=== PATIENT | female | born 1945 | race African-American/Black ===

== ENCOUNTER 2020-02-25 07:36 | Inpatient (IN) ==
[2020-02-25] MEDS ORDERED: hydrALAZINE 20 MG/1 ML VIAL ONE (07:55)
[2020-02-25] MEDS ORDERED: hydrALAZINE 20 MG/1 ML VIAL IV STA (08:03)
[2020-02-25 08:11] LABS: Basophils % 0.2 % (0.0-0.8); Hematocrit 40.2 VOL% (35.7-47.0); Hemoglobin 12.3 GM/DL (12.0-16.0); Immature Granulocytes % 0.2 %; Immature Granulocytes Absolute 0.02 #; Lymphocytes # 0.8 10*3/uL (1.4-4.0); Lymphocytes % 8.5 % (21.3-54.2); Mean Corpuscular HGB Conc 30.6 GM/DL (32-36); Mean Corpuscular Volume 72.3 FL (87-102); Monocytes % 9.3 % (1.7-12.7); Neutrophils % 81.8 % (38.7-73.9); Platelet Count 273 T/CUMM (130-400); Red Blood Count 5.56 MC/CUMM (3.8-5.5); Red Cell Distribution Width 18.6 % (9.3-17.3); White Blood Count 9.4 T/CUMM (4-12)
[2020-02-25 08:24] LABS: PT Patient Result 10.9 SECS (9.8-11.9); Partial Thromboplastin Time 22.5 SECS (23.9-33.8)
[2020-02-25 08:34] LABS: Platelet Estimate Adequate
[2020-02-25 08:55] LABS: Apearance,Urine CLEAR (Clear); Bilirubin,Urine Negative (Negative); Blood, Urine Negative (Negative); Glucose,Urine (UA) Negative (Negative); Ketones,Urine 20 mg/dL (Negative); Mucus,Urine Occasional /LPF (Occasional); Nitrite,Urine Negative (Negative); Protein,Urine 100 MG/DL; RBC,Urine 3 /HPF (0-4); Urine Color Yellow (Yellow); WBC,Urine 1 /HPF (0-6)
[2020-02-25 09:12] LABS: Barbiturates Screen,Urine Negative (Negative); Benzodiazepines Screen,Urine Negative (Negative); Cannabinoid Screen,Urine Negative (Negative); Opiate Screen,Urine Negative (Negative); Phencyclidine Screen,Urine Negative (Negative)
[2020-02-25 09:16] LABS: Alanine Aminotransferase 71 U/L (13-56); Albumin 3.4 G/DL (3.4-5.0); Alkaline Phosphatase 255 U/L (45-117); Aspartate Amino Transferase 107 U/L (0-37); Blood Urea Nitrogen 21 MG/DL (7-18); Calcium 10.4 MG/DL (8.5-10.1); Estimated Glom Filtration Rate 38 ML/MIN; Glucose 231 MG/DL (74-106); Osmolality,Calculated 275.4 MOS/KG (273-304); Total Protein 8.4 G/DL (6.4-8.3)
[2020-02-25] MEDS ORDERED: cefTRIAXone 1,000 MG in SODIUM CHLORIDE 0.9% 100 ML IV STA (09:56)
[2020-02-25] MEDS ORDERED: SODIUM CHLORIDE 0.9% 1,000 ML IV STA (10:18)
[2020-02-25] MEDS ORDERED: MAGNESIUM SULF RIDER 2 GM in PREMIX 1 EACH IV STA (10:20)
[2020-02-25] MEDS ORDERED: SODIUM CHLORIDE 0.9% 500 ML IV STA (10:23)
[2020-02-25] MEDS ORDERED: DEXTROSE 50% 25 GM/50 ML VIAL IV PRN (10:24)
[2020-02-25] MEDS ORDERED: LACTULOSE 20 GM/30 ML UDCUP PO PRN (10:24)
[2020-02-25] MEDS ORDERED: GLUCAGON 1 MG VIAL IM PRN (10:24)
[2020-02-25] MEDS ORDERED: ENOXAPARIN 40 MG/0.4 ML SYRINGE SUBCUT SCH (10:30)
[2020-02-25 10:44] LABS: Ferritin 217.1 ng/ml (8-252)
[2020-02-25] MEDS ORDERED: LORazepam 2 MG/1 ML VIAL IV ONE (12:04)
[2020-02-25] MEDS ORDERED: LACTATED RINGERS 1,000 ML IV SCH (12:30)
[2020-02-25] MEDS: ONDANSETRON 4 MG/2 ML VIAL IV PRN (14:01)
[2020-02-25] MEDS: HEPARIN 5,000 UNIT/1 ML VIAL SUBCUT SCH (14:08)
[2020-02-25 14:26] LABS: Hepatitis B Core IgM Quant 0.16 Index; Hepatitis B Surface Ag Quant < 0.10 Index; Hepatitis B Surface Ag Result Negative (Negative); Hepatitis C Virus Ab Quant 0.06 Index; Hepatitis C Virus Ab Result Negative (Negative)
[2020-02-25] MEDS ORDERED: LACTULOSE 320 GM/480 ML BOTTLE RECTAL ONE (15:28)
[2020-02-25] MEDS: SODIUM BICARB INJ 100 MEQ in DEXTROSE 5% NACL 0.45% 1,000 ML IV SCH (17:03)
[2020-02-25] MEDS: INSULIN REGULAR 100 UNIT/ML SUBCUT SCH ×2 (17:10→22:06)
[2020-02-26] MEDS: HEPARIN 5,000 UNIT/1 ML VIAL SUBCUT SCH ×2 (02:22→14:18)
[2020-02-26] MEDS: SODIUM BICARB INJ 100 MEQ in DEXTROSE 5% NACL 0.45% 1,000 ML IV SCH (04:28)
[2020-02-26 05:23] LABS: Basophils % 0.1 % (0.0-0.8); Hematocrit 31.4 VOL% (35.7-47.0); Immature Granulocytes % 0.5 %; Immature Granulocytes Absolute 0.09 #; Lymphocytes % 5.7 % (21.3-54.2); Mean Corpuscular HGB Conc 31.8 GM/DL (32-36); Mean Corpuscular Volume 69.9 FL (87-102); Monocytes % 10.1 % (1.7-12.7); Neutrophils % 83.6 % (38.7-73.9); Platelet Count 228 T/CUMM (130-400); Red Blood Count 4.49 MC/CUMM (3.8-5.5); Red Cell Distribution Width 16.1 % (9.3-17.3)
[2020-02-26 05:34] LABS: White Blood Count 18.4 T/CUMM (4-12)
[2020-02-26 05:57] LABS: Albumin 2.9 G/DL (3.4-5.0); Bilirubin,Total 0.5 MG/DL (0.2-1.0); Calcium 9.3 MG/DL (8.5-10.1); Osmolality,Calculated 296.7 MOS/KG (273-304); Total Protein 6.8 G/DL (6.4-8.3)
[2020-02-26 05:58] LABS: Hypochromasia 1+; Microcytosis 1+; Target Cells Few
[2020-02-26 05:59] LABS: Ovalocytes Slight; Platelet Estimate Normal
[2020-02-26] MEDS ORDERED: POTASSIUM CHLORIDE 20 MEQ TABLET PO ONE (07:24)
[2020-02-26] MEDS ORDERED: hydrALAZINE 20 MG/1 ML VIAL IV PRN (07:25)
[2020-02-26] MEDS ORDERED: PANTOPRAZOLE 40 MG TABLET PO SCH (09:00)
[2020-02-26] MEDS: INSULIN REGULAR 100 UNIT/ML SUBCUT SCH ×4 (09:21→22:38)
[2020-02-26] MEDS: ONDANSETRON 4 MG/2 ML VIAL IV PRN (09:21)
[2020-02-26] MEDS: METOPROLOL TARTRATE 25 MG TABLET PO SCH ×2 (09:22→22:38)
[2020-02-26] MEDS: ISOSORBIDE MONONITRATE 30 MG TABLET PO SCH (09:22)
[2020-02-26] MEDS: ESCITALOPRAM 10 MG TABLET PO SCH (09:22)
[2020-02-26] MEDS: amLODIPine 5 MG TABLET PO SCH (09:22)
[2020-02-26] MEDS: SODIUM CHLORIDE 0.45% 1,000 ML IV SCH ×2 (09:23→18:36)
[2020-02-26] MEDS ORDERED: cefTRIAXone 1,000 MG in SYRINGE 1 EACH IV SCH (11:00)
[2020-02-26] MEDS: PIPERACILLIN/TAZOBACTAM 3,375 MG in SODIUM CHLORIDE 0.9% 100 ML IV SCH ×2 (14:18→22:46)
[2020-02-26] MEDS: INSULIN LISPRO 100 UNIT/ML SUBCUT SCH (22:38)
[2020-02-27] MEDS: HEPARIN 5,000 UNIT/1 ML VIAL SUBCUT SCH ×2 (01:41→12:40)
[2020-02-27] MEDS: SODIUM CHLORIDE 0.45% 1,000 ML IV SCH ×2 (03:05→15:28)
[2020-02-27] MEDS: PIPERACILLIN/TAZOBACTAM 3,375 MG in SODIUM CHLORIDE 0.9% 100 ML IV SCH ×3 (03:32→21:16)
[2020-02-27 05:57] LABS: Basophils % 0.1 % (0.0-0.8); Eosinophils # 0.1 10*3/uL (0.0-0.87); Eosinophils % 0.6 % (0.00-10.9); Hematocrit 32.3 VOL% (35.7-47.0); Hemoglobin 9.9 GM/DL (12.0-16.0); Immature Granulocytes % 0.1 %; Immature Granulocytes Absolute 0.01 #; Lymphocytes # 1.8 10*3/uL (1.4-4.0); Lymphocytes % 19.8 % (21.3-54.2); Mean Corpuscular HGB Conc 30.7 GM/DL (32-36); Mean Corpuscular Volume 71.9 FL (87-102); Neutrophils % 65.4 % (38.7-73.9); Platelet Count 194 T/CUMM (130-400); Red Blood Count 4.49 MC/CUMM (3.8-5.5); Red Cell Distribution Width 16.8 % (9.3-17.3); White Blood Count 9.3 T/CUMM (4-12)
[2020-02-27 06:01] LABS: Calcium 9.4 MG/DL (8.5-10.1); Osmolality,Calculated 287.4 MOS/KG (273-304)
[2020-02-27 06:33] LABS: Hypochromasia 2+; Microcytosis 1+
[2020-02-27 06:34] LABS: Ovalocytes Slight; Platelet Estimate Adequate; Target Cells Few
[2020-02-27] MEDS: INSULIN REGULAR 100 UNIT/ML SUBCUT SCH ×4 (09:36→21:25)
[2020-02-27] MEDS: METOPROLOL TARTRATE 25 MG TABLET PO SCH ×3 (09:41→21:24)
[2020-02-27] MEDS: ESCITALOPRAM 10 MG TABLET PO SCH (09:41)
[2020-02-27] MEDS: amLODIPine 5 MG TABLET PO SCH (09:41)
[2020-02-27] MEDS: ISOSORBIDE MONONITRATE 30 MG TABLET PO SCH (09:41)
[2020-02-27] MEDS: levETIRAcetam 500 MG TABLET PO SCH ×2 (21:18→21:24)
[2020-02-27] MEDS: INSULIN LISPRO 100 UNIT/ML SUBCUT SCH (21:18)
[2020-02-28] MEDS: HEPARIN 5,000 UNIT/1 ML VIAL SUBCUT SCH ×2 (02:45→13:52)
[2020-02-28] MEDS: PIPERACILLIN/TAZOBACTAM 3,375 MG in SODIUM CHLORIDE 0.9% 100 ML IV SCH ×2 (04:49→12:08)
[2020-02-28 05:55] LABS: Basophils % 0.3 % (0.0-0.8); Eosinophils % 0.4 % (0.00-10.9); Hematocrit 29.4 VOL% (35.7-47.0); Hemoglobin 9.2 GM/DL (12.0-16.0); Immature Granulocytes % 0.8 %; Immature Granulocytes Absolute 0.06 #; Lymphocytes # 1.3 10*3/uL (1.4-4.0); Lymphocytes % 17.1 % (21.3-54.2); Mean Corpuscular HGB Conc 31.3 GM/DL (32-36); Mean Corpuscular Volume 71.2 FL (87-102); Monocytes % 13.4 % (1.7-12.7); Platelet Count 190 T/CUMM (130-400); Red Blood Count 4.13 MC/CUMM (3.8-5.5); Red Cell Distribution Width 16.4 % (9.3-17.3); White Blood Count 7.4 T/CUMM (4-12)
[2020-02-28 06:17] LABS: Calcium 9.3 MG/DL (8.5-10.1); Osmolality,Calculated 280.5 MOS/KG (273-304)
[2020-02-28 06:32] LABS: Hypochromasia 2+; Microcytosis 1+
[2020-02-28 06:33] LABS: Target Cells Slight
[2020-02-28 06:34] LABS: Platelet Estimate Adequate
[2020-02-28] MEDS: amLODIPine 5 MG TABLET PO SCH (08:29)
[2020-02-28] MEDS: METOPROLOL TARTRATE 25 MG TABLET PO SCH (08:29)
[2020-02-28] MEDS: INSULIN REGULAR 100 UNIT/ML SUBCUT SCH ×2 (08:38→12:01)
[2020-02-28] MEDS: levETIRAcetam 500 MG TABLET PO SCH (09:24)
[2020-02-28] MEDS: ISOSORBIDE MONONITRATE 30 MG TABLET PO SCH (09:25)
[2020-02-28] MEDS: ESCITALOPRAM 10 MG TABLET PO SCH (09:25)
[2020-02-28] MEDS ORDERED: levETIRAcetam 500 MG TABLET PO SCH (09:44)
[2020-02-28] MEDS: SODIUM CHLORIDE 0.45% 1,000 ML IV SCH (13:51)
[2020-02-28 15:42] VITALS: BP 112/60
== END 2020-02-28 17:23 | disposition home health service (06) | DRG 100 ==
LOC: N.EDINP 07:36 → N.ED 07:36 → N.TELEN 13:34 → SUATTDRO 15:33
PROVIDERS: ADMIT Internal Medicine; ATTEND Internal Medicine

== ENCOUNTER 2020-03-01 15:13 | Inpatient (IN) ==
[2020-03-01] MEDS ORDERED: SODIUM CHLORIDE 0.9% 1,000 ML IV STA (15:33)
[2020-03-01 15:54] LABS: Basophils % 0.2 % (0.0-0.8); Eosinophils % 0.1 % (0.00-10.9); Hematocrit 36.1 VOL% (35.7-47.0); Hemoglobin 11.3 GM/DL (12.0-16.0); Immature Granulocytes % 0.6 %; Immature Granulocytes Absolute 0.05 #; Lymphocytes # 0.6 10*3/uL (1.4-4.0); Lymphocytes % 7.6 % (21.3-54.2); Mean Corpuscular HGB Conc 31.3 GM/DL (32-36); Mean Corpuscular Volume 71.6 FL (87-102); Monocytes % 12.5 % (1.7-12.7); Platelet Count 200 T/CUMM (130-400); Red Blood Count 5.04 MC/CUMM (3.8-5.5); Red Cell Distribution Width 16.5 % (9.3-17.3); White Blood Count 8.2 T/CUMM (4-12)
[2020-03-01 16:05] LABS: PT Patient Result 10.6 SECS (9.8-11.9); Partial Thromboplastin Time 23.9 SECS (23.9-33.8)
[2020-03-01 16:16] LABS: Albumin 3.3 G/DL (3.4-5.0); Bilirubin,Total 0.9 MG/DL (0.2-1.0); Calcium 9.9 MG/DL (8.5-10.1); Osmolality,Calculated 272.7 MOS/KG (273-304); Total Protein 7.4 G/DL (6.4-8.3)
[2020-03-01 16:24] LABS: Ferritin 180.1 ng/ml (8-252)
[2020-03-01 16:31] LABS: Apearance,Urine CLEAR (Clear); Bilirubin,Urine Negative (Negative); Blood, Urine Small mg/dL (Negative); Glucose,Urine (UA) 150 mg/dL (Negative); Ketones,Urine 20 mg/dL (Negative); Mucus,Urine Occasional /LPF (Occasional); Nitrite,Urine Negative (Negative); Protein,Urine 100 MG/DL; RBC,Urine 5 /HPF (0-4); Squamous Epithelial Cell,Urine Occasional /HPF (0-10); Urine Color Yellow (Yellow); Urine Specific Gravity 1.015 (1.001-1.035); Urine Urobilinogen < 2.0 EU/DL (0.2-1.0); WBC,Urine 1 /HPF (0-6)
[2020-03-01 16:37] LABS: Barbiturates Screen,Urine Negative (Negative); Benzodiazepines Screen,Urine Negative (Negative); Cannabinoid Screen,Urine Negative (Negative); Opiate Screen,Urine Negative (Negative); Phencyclidine Screen,Urine Negative (Negative)
[2020-03-01] MEDS ORDERED: ONDANSETRON 4 MG/2 ML VIAL IV PRN (17:56)
[2020-03-01] MEDS ORDERED: GLUCAGON 1 MG VIAL IM PRN (17:56)
[2020-03-01] MEDS ORDERED: LACTULOSE 20 GM/30 ML UDCUP PO PRN (17:56)
[2020-03-01] MEDS ORDERED: DEXTROSE 50% 25 GM/50 ML VIAL IV PRN (17:56)
[2020-03-01] MEDS ORDERED: DOCUSATE SODIUM 100 MG CAPSULE PO PRN (17:56)
[2020-03-01] MEDS: ENOXAPARIN 30 MG/0.3 ML SYRINGE SUBCUT SCH (21:51)
[2020-03-01] MEDS: INSULIN LISPRO 100 UNIT/ML SUBCUT SCH (21:51)
[2020-03-01] MEDS: SODIUM CHLORIDE 0.9% 1,000 ML IV SCH (23:19)
[2020-03-01] MEDS: ACYCLOVIR 800 MG TABLET PO SCH (23:19)
[2020-03-02] MEDS: hydrALAZINE 20 MG/1 ML VIAL IV PRN (02:45)
[2020-03-02] MEDS: SODIUM CHLORIDE 0.9% 1,000 ML IV SCH ×2 (03:05→10:48)
[2020-03-02 05:33] LABS: Basophils % 0.2 % (0.0-0.8); Eosinophils % 0.3 % (0.00-10.9); Hematocrit 31.4 VOL% (35.7-47.0); Immature Granulocytes % 0.7 %; Immature Granulocytes Absolute 0.07 #; Lymphocytes % 10.3 % (21.3-54.2); Mean Corpuscular HGB Conc 31.8 GM/DL (32-36); Mean Corpuscular Volume 69.5 FL (87-102); Monocytes % 18.3 % (1.7-12.7); Neutrophils % 70.2 % (38.7-73.9); Platelet Count 248 T/CUMM (130-400); Red Blood Count 4.52 MC/CUMM (3.8-5.5); Red Cell Distribution Width 16.5 % (9.3-17.3); White Blood Count 9.6 T/CUMM (4-12)
[2020-03-02 06:02] LABS: Albumin 2.9 G/DL (3.4-5.0); Bilirubin,Total 0.6 MG/DL (0.2-1.0); Calcium 9.3 MG/DL (8.5-10.1); Osmolality,Calculated 270.4 MOS/KG (273-304); Risk Ratio 2.8; Thyroid Stimulating Hormone 1.02 uIU/ml (0.358-3.74); Total Protein 7.1 G/DL (6.4-8.3); VLDL CHOLESTEROL 22.4 MG/DL
[2020-03-02 06:03] LABS: Hypochromasia 1+; Lymphocytes 12 % (20-55); Platelet Estimate Adequate; Segmented Neutrophils 77 % (50-85); Total Cells Counted 100
[2020-03-02 06:04] LABS: Microcytosis Slight
[2020-03-02] MEDS: ACYCLOVIR 800 MG TABLET PO SCH ×5 (06:07→21:27)
[2020-03-02] MEDS ORDERED: MAGNESIUM SULF RIDER 2 GM in PREMIX 1 EACH IV PRN (07:07)
[2020-03-02] MEDS ORDERED: MAGNESIUM SULF RIDER 4 GM in PREMIX 1 EACH IV PRN (07:07)
[2020-03-02] MEDS ORDERED: LORazepam 2 MG/1 ML VIAL IV PRN (07:59)
[2020-03-02] MEDS ORDERED: AMOXICILLIN/CLAV 875 MG TABLET PO SCH (08:00)
[2020-03-02] MEDS: ESCITALOPRAM 10 MG TABLET PO SCH (09:40)
[2020-03-02] MEDS: PANTOPRAZOLE 40 MG TABLET PO SCH (09:40)
[2020-03-02] MEDS: ISOSORBIDE MONONITRATE 30 MG TABLET PO SCH (09:40)
[2020-03-02] MEDS: ASPIRIN EC 325 MG TABLET PO SCH (09:40)
[2020-03-02] MEDS: INSULIN LISPRO 100 UNIT/ML SUBCUT SCH ×4 (10:16→21:28)
[2020-03-02] MEDS: POTASSIUM CHLORIDE 20 MEQ TABLET PO PRN ×2 (12:39→17:46)
[2020-03-02] MEDS ORDERED: INSULIN GLARGINE 100 UNIT/ML SUBCUT SCH (21:00)
[2020-03-02] MEDS: levETIRAcetam 500 MG TABLET PO SCH (21:27)
[2020-03-02] MEDS: AMITRIPTYLINE 50 MG TABLET PO SCH (21:27)
[2020-03-02] MEDS: ATORVASTATIN 10 MG TABLET PO SCH (21:27)
[2020-03-02] MEDS: ENOXAPARIN 30 MG/0.3 ML SYRINGE SUBCUT SCH (21:29)
[2020-03-03] MEDS: SODIUM CHLORIDE 0.9% 1,000 ML IV SCH ×2 (03:14→18:24)
[2020-03-03 05:37] LABS: Basophils % 0.1 % (0.0-0.8); Eosinophils # 0.1 10*3/uL (0.0-0.87); Eosinophils % 0.6 % (0.00-10.9); Hematocrit 27.1 VOL% (35.7-47.0); Hemoglobin 8.6 GM/DL (12.0-16.0); Immature Granulocytes % 0.7 %; Immature Granulocytes Absolute 0.06 #; Lymphocytes % 11.8 % (21.3-54.2); Mean Corpuscular HGB Conc 31.7 GM/DL (32-36); Mean Corpuscular Volume 69.3 FL (87-102); Monocytes % 19.5 % (1.7-12.7); Neutrophils % 67.3 % (38.7-73.9); Platelet Count 177 T/CUMM (130-400); Red Blood Count 3.91 MC/CUMM (3.8-5.5); White Blood Count 8.2 T/CUMM (4-12)
[2020-03-03 06:00] LABS: Eosinophils 3 % (0-10); Hypochromasia 1+; Lymphocytes 8 % (20-55); Ovalocytes Slight; Platelet Estimate Adequate; Segmented Neutrophils 68 % (50-85); Total Cells Counted 100
[2020-03-03 06:01] LABS: Microcytosis Slight
[2020-03-03 06:10] LABS: % Iron Saturation 10.4 % (18-50); Calcium 8.8 MG/DL (8.5-10.1); Ferritin 154.6 ng/ml (8-252); Osmolality,Calculated 272.1 MOS/KG (273-304)
[2020-03-03 06:18] LABS: Albumin 2.6 G/DL (3.4-5.0); Bilirubin,Total 0.8 MG/DL (0.2-1.0); Calcium 8.9 MG/DL (8.5-10.1); Osmolality,Calculated 271.1 MOS/KG (273-304); Total Protein 6.4 G/DL (6.4-8.3)
[2020-03-03] MEDS: ACYCLOVIR 800 MG TABLET PO SCH ×5 (06:50→21:31)
[2020-03-03] MEDS: ASPIRIN EC 325 MG TABLET PO SCH (08:12)
[2020-03-03] MEDS: ESCITALOPRAM 10 MG TABLET PO SCH (08:12)
[2020-03-03] MEDS: ISOSORBIDE MONONITRATE 30 MG TABLET PO SCH (08:13)
[2020-03-03] MEDS: INSULIN LISPRO 100 UNIT/ML SUBCUT SCH ×4 (08:13→21:30)
[2020-03-03] MEDS: PANTOPRAZOLE 40 MG TABLET PO SCH (08:13)
[2020-03-03] MEDS: levETIRAcetam 500 MG TABLET PO SCH ×2 (10:07→21:30)
[2020-03-03] MEDS: ACETAMINOPHEN 325 MG TABLET PO PRN (15:09)
[2020-03-03] MEDS: AMITRIPTYLINE 50 MG TABLET PO SCH (21:29)
[2020-03-03] MEDS: FERROUS SULFATE 325 MG TABLET PO SCH (21:29)
[2020-03-03] MEDS: INSULIN GLARGINE 100 UNIT/ML SUBCUT SCH (21:30)
[2020-03-03] MEDS: ATORVASTATIN 10 MG TABLET PO SCH (21:30)
[2020-03-04] MEDS: ACETAMINOPHEN 325 MG TABLET PO PRN (00:30)
[2020-03-04 05:35] LABS: Basophils % 0.3 % (0.0-0.8); Eosinophils % 0.4 % (0.00-10.9); Hematocrit 30.5 VOL% (35.7-47.0); Hemoglobin 9.6 GM/DL (12.0-16.0); Immature Granulocytes % 1.3 %; Lymphocytes # 1.6 10*3/uL (1.4-4.0); Lymphocytes % 21.6 % (21.3-54.2); Mean Corpuscular HGB Conc 31.5 GM/DL (32-36); Mean Corpuscular Volume 71.3 FL (87-102); Monocytes % 23.8 % (1.7-12.7); Neutrophils % 52.6 % (38.7-73.9); Platelet Count 247 T/CUMM (130-400); Red Blood Count 4.28 MC/CUMM (3.8-5.5); Red Cell Distribution Width 16.9 % (9.3-17.3); White Blood Count 7.5 T/CUMM (4-12)
[2020-03-04] MEDS: ACYCLOVIR 800 MG TABLET PO SCH ×2 (06:10→09:17)
[2020-03-04 06:46] LABS: Albumin 2.7 G/DL (3.4-5.0); Bilirubin,Total 0.7 MG/DL (0.2-1.0); Calcium 8.9 MG/DL (8.5-10.1); Total Protein 6.5 G/DL (6.4-8.3)
[2020-03-04 06:47] LABS: Osmolality,Calculated 270.1 MOS/KG (273-304)
[2020-03-04] MEDS: hydrALAZINE 20 MG/1 ML VIAL IV PRN (07:07)
[2020-03-04] MEDS: INSULIN LISPRO 100 UNIT/ML SUBCUT SCH ×4 (08:02→22:10)
[2020-03-04] MEDS: SODIUM CHLORIDE 0.9% 1,000 ML IV SCH (09:14)
[2020-03-04] MEDS: METOPROLOL TARTRATE 25 MG TABLET PO SCH ×2 (09:17→22:05)
[2020-03-04] MEDS: levETIRAcetam 500 MG TABLET PO SCH ×2 (09:17→22:05)
[2020-03-04] MEDS: PANTOPRAZOLE 40 MG TABLET PO SCH (09:17)
[2020-03-04] MEDS: FERROUS SULFATE 325 MG TABLET PO SCH ×2 (09:18→22:05)
[2020-03-04] MEDS: ESCITALOPRAM 10 MG TABLET PO SCH (09:18)
[2020-03-04] MEDS: ISOSORBIDE MONONITRATE 30 MG TABLET PO SCH (09:18)
[2020-03-04] MEDS: ASPIRIN EC 325 MG TABLET PO SCH (09:18)
[2020-03-04] MEDS ORDERED: BISACODYL 5 MG TABLET PO ONE (09:36)
[2020-03-04] MEDS: cefTRIAXone 2,000 MG in SYRINGE 1 EACH IV SCH ×2 (10:21→22:58)
[2020-03-04 10:22] LABS: Ferritin 151.7 ng/ml (8-252)
[2020-03-04] MEDS: ACYCLOVIR IV SCH ×2 (11:29→18:03)
[2020-03-04] MEDS: SODIUM CHLORIDE 0.9% IV SCH ×2 (11:29→18:03)
[2020-03-04 11:46] LABS: Hypochromasia 2+; Lymphocytes 14 % (20-55); Microcytosis Slight; Platelet Estimate Adequate; Polychromasia Slight; Segmented Neutrophils 66 % (50-85); Total Cells Counted 100
[2020-03-04 15:08] LABS: Apearance,Urine CLEAR (Clear); Bilirubin,Urine Negative (Negative); Blood, Urine Negative (Negative); Glucose,Urine (UA) 50 mg/dL (Negative); Hyaline Casts,Urine 1 /LPF (0-3); Ketones,Urine Negative (Negative); Mucus,Urine Occasional /LPF (Occasional); Nitrite,Urine Negative (Negative); Protein,Urine 30 MG/DL; RBC,Urine 2 /HPF (0-4); Squamous Epithelial Cell,Urine Occasional /HPF (0-10); Urine Color Yellow (Yellow); Urine Specific Gravity 1.011 (1.001-1.035); Urine Urobilinogen < 2.0 EU/DL (0.2-1.0); WBC,Urine 1 /HPF (0-6)
[2020-03-04] MEDS: AMITRIPTYLINE 50 MG TABLET PO SCH (22:04)
[2020-03-04] MEDS: ATORVASTATIN 10 MG TABLET PO SCH (22:05)
[2020-03-04] MEDS: INSULIN GLARGINE 100 UNIT/ML SUBCUT SCH (22:06)
[2020-03-05] MEDS: ACYCLOVIR IV SCH ×3 (02:55→18:28)
[2020-03-05] MEDS: SODIUM CHLORIDE 0.9% IV SCH ×3 (02:55→18:28)
[2020-03-05 06:14] LABS: Calcium 9.2 MG/DL (8.5-10.1)
[2020-03-05] MEDS: hydrALAZINE 20 MG/1 ML VIAL IV PRN (06:32)
[2020-03-05] MEDS: INSULIN LISPRO 100 UNIT/ML SUBCUT SCH ×4 (07:57→22:25)
[2020-03-05] MEDS: PANTOPRAZOLE 40 MG TABLET PO SCH (09:39)
[2020-03-05] MEDS: levETIRAcetam 500 MG TABLET PO SCH ×2 (09:39→22:25)
[2020-03-05] MEDS: FERROUS SULFATE 325 MG TABLET PO SCH ×2 (09:39→22:24)
[2020-03-05] MEDS: ASPIRIN EC 325 MG TABLET PO SCH (09:39)
[2020-03-05] MEDS: ESCITALOPRAM 10 MG TABLET PO SCH (09:39)
[2020-03-05] MEDS: METOPROLOL TARTRATE 25 MG TABLET PO SCH ×2 (09:39→22:26)
[2020-03-05] MEDS: cefTRIAXone 2,000 MG in SYRINGE 1 EACH IV SCH ×2 (09:40→23:58)
[2020-03-05] MEDS: ISOSORBIDE MONONITRATE 30 MG TABLET PO SCH (09:41)
[2020-03-05] MEDS ORDERED: hydrALAZINE 25 MG TABLET ONE (16:30)
[2020-03-05] MEDS: AMITRIPTYLINE 50 MG TABLET PO SCH (22:24)
[2020-03-05] MEDS: ATORVASTATIN 10 MG TABLET PO SCH (22:26)
[2020-03-05] MEDS: INSULIN GLARGINE 100 UNIT/ML SUBCUT SCH (22:26)
[2020-03-06] MEDS: ACYCLOVIR IV SCH ×3 (03:49→20:09)
[2020-03-06] MEDS: SODIUM CHLORIDE 0.9% IV SCH ×3 (03:49→20:09)
[2020-03-06 05:12] LABS: Basophils % 0.2 % (0.0-0.8); Eosinophils % 0.5 % (0.00-10.9); Hematocrit 30.3 VOL% (35.7-47.0); Hemoglobin 9.8 GM/DL (12.0-16.0); Immature Granulocytes % 0.8 %; Immature Granulocytes Absolute 0.07 #; Lymphocytes # 2.2 10*3/uL (1.4-4.0); Lymphocytes % 26.3 % (21.3-54.2); Mean Corpuscular HGB Conc 32.3 GM/DL (32-36); Monocytes % 14.9 % (1.7-12.7); Neutrophils % 57.3 % (38.7-73.9); Platelet Count 294 T/CUMM (130-400); Red Blood Count 4.39 MC/CUMM (3.8-5.5); Red Cell Distribution Width 17.2 % (9.3-17.3); White Blood Count 8.3 T/CUMM (4-12)
[2020-03-06 05:34] LABS: Calcium 9.3 MG/DL (8.5-10.1)
[2020-03-06] MEDS ORDERED: hydrALAZINE 25 MG TABLET ONE ×2 (07:56→13:01)
[2020-03-06] MEDS: INSULIN LISPRO 100 UNIT/ML SUBCUT SCH ×4 (08:18→21:42)
[2020-03-06] MEDS: ESCITALOPRAM 10 MG TABLET PO SCH (08:19)
[2020-03-06] MEDS: FERROUS SULFATE 325 MG TABLET PO SCH ×2 (08:19→21:41)
[2020-03-06] MEDS: ASPIRIN EC 325 MG TABLET PO SCH (08:19)
[2020-03-06] MEDS: METOPROLOL TARTRATE 25 MG TABLET PO SCH ×2 (08:19→21:42)
[2020-03-06] MEDS: PANTOPRAZOLE 40 MG TABLET PO SCH (08:19)
[2020-03-06] MEDS: levETIRAcetam 500 MG TABLET PO SCH ×2 (08:20→21:42)
[2020-03-06] MEDS: ISOSORBIDE MONONITRATE 30 MG TABLET PO SCH (08:20)
[2020-03-06 11:19] LABS: Appearance,CSF Clear; Red Blood Cell,CSF 23 C/CUMM; White Blood Cell,CSF 16 C/CUMM
[2020-03-06] MEDS: cefTRIAXone 2,000 MG in SYRINGE 1 EACH IV SCH ×2 (11:21→23:19)
[2020-03-06] MEDS: ATORVASTATIN 10 MG TABLET PO SCH (21:42)
[2020-03-06] MEDS: AMITRIPTYLINE 50 MG TABLET PO SCH (21:42)
[2020-03-06] MEDS: INSULIN GLARGINE 100 UNIT/ML SUBCUT SCH (21:43)
[2020-03-07] MEDS: SODIUM CHLORIDE 0.9% IV SCH ×3 (03:44→19:39)
[2020-03-07] MEDS: ACYCLOVIR IV SCH ×3 (03:44→19:39)
[2020-03-07] MEDS: hydrALAZINE 20 MG/1 ML VIAL IV PRN (05:08)
[2020-03-07 05:53] LABS: Basophils % 0.1 % (0.0-0.8); Eosinophils % 0.5 % (0.00-10.9); Hematocrit 26.6 VOL% (35.7-47.0); Hemoglobin 8.7 GM/DL (12.0-16.0); Immature Granulocytes % 0.5 %; Immature Granulocytes Absolute 0.04 #; Lymphocytes % 23.9 % (21.3-54.2); Mean Corpuscular HGB Conc 32.7 GM/DL (32-36); Mean Corpuscular Volume 68.4 FL (87-102); Mean Platelet Volume 11.4 FL (9.6-12.0); Monocytes % 10.9 % (1.7-12.7); Neutrophils % 64.1 % (38.7-73.9); Platelet Count 271 T/CUMM (130-400); Red Blood Count 3.89 MC/CUMM (3.8-5.5); Red Cell Distribution Width 16.9 % (9.3-17.3); White Blood Count 8.3 T/CUMM (4-12)
[2020-03-07 06:16] LABS: Hypochromasia 1+; Lymphocytes 15 % (20-55); Platelet Estimate Adequate; Segmented Neutrophils 78 % (50-85); Total Cells Counted 100
[2020-03-07 06:28] LABS: Calcium 9.1 MG/DL (8.5-10.1); Osmolality,Calculated 273.5 MOS/KG (273-304)
[2020-03-07 08:10] LABS: Lymphocytes,CSF 64 %; Monocytes,CSF 15 %
[2020-03-07] MEDS: INSULIN LISPRO 100 UNIT/ML SUBCUT SCH ×4 (08:14→21:57)
[2020-03-07] MEDS: ESCITALOPRAM 10 MG TABLET PO SCH (09:30)
[2020-03-07] MEDS: ASPIRIN EC 325 MG TABLET PO SCH (09:30)
[2020-03-07] MEDS: levETIRAcetam 500 MG TABLET PO SCH ×2 (09:30→21:56)
[2020-03-07] MEDS: FERROUS SULFATE 325 MG TABLET PO SCH ×2 (09:30→21:56)
[2020-03-07] MEDS: METOPROLOL TARTRATE 25 MG TABLET PO SCH ×2 (09:31→21:55)
[2020-03-07] MEDS: ISOSORBIDE MONONITRATE 30 MG TABLET PO SCH (09:31)
[2020-03-07] MEDS: cefTRIAXone 2,000 MG in SYRINGE 1 EACH IV SCH ×2 (12:12→23:37)
[2020-03-07] MEDS: PANTOPRAZOLE 40 MG TABLET PO SCH (12:13)
[2020-03-07] MEDS: AMITRIPTYLINE 50 MG TABLET PO SCH (21:56)
[2020-03-07] MEDS: ATORVASTATIN 10 MG TABLET PO SCH (21:56)
[2020-03-07] MEDS: INSULIN GLARGINE 100 UNIT/ML SUBCUT SCH (21:57)
[2020-03-08] MEDS: SODIUM CHLORIDE 0.9% IV SCH (03:13)
[2020-03-08] MEDS: ACYCLOVIR IV SCH (03:13)
[2020-03-08] MEDS: ESCITALOPRAM 10 MG TABLET PO SCH (09:41)
[2020-03-08] MEDS: METOPROLOL TARTRATE 25 MG TABLET PO SCH ×2 (09:41→21:49)
[2020-03-08] MEDS: POTASSIUM CHLORIDE 20 MEQ TABLET PO PRN (09:41)
[2020-03-08] MEDS: PANTOPRAZOLE 40 MG TABLET PO SCH (09:42)
[2020-03-08] MEDS: ISOSORBIDE MONONITRATE 30 MG TABLET PO SCH (09:42)
[2020-03-08] MEDS: levETIRAcetam 500 MG TABLET PO SCH ×2 (09:42→21:48)
[2020-03-08] MEDS: FERROUS SULFATE 325 MG TABLET PO SCH ×2 (09:42→21:48)
[2020-03-08] MEDS: ASPIRIN EC 325 MG TABLET PO SCH (09:43)
[2020-03-08] MEDS: INSULIN LISPRO 100 UNIT/ML SUBCUT SCH ×4 (09:56→21:49)
[2020-03-08] MEDS: cefTRIAXone 2,000 MG in SYRINGE 1 EACH IV SCH (10:52)
[2020-03-08 11:52] LABS: VDRL Spinal Fluid Negative (Negative)
[2020-03-08] MEDS: AMITRIPTYLINE 50 MG TABLET PO SCH (21:49)
[2020-03-08] MEDS: ATORVASTATIN 10 MG TABLET PO SCH (21:49)
[2020-03-08] MEDS: INSULIN GLARGINE 100 UNIT/ML SUBCUT SCH (21:51)
[2020-03-09] MEDS: cefTRIAXone 2,000 MG in SYRINGE 1 EACH IV SCH ×2 (02:00→12:23)
[2020-03-09 05:08] LABS: Basophils % 0.2 % (0.0-0.8); Eosinophils % 0.5 % (0.00-10.9); Hematocrit 28.8 VOL% (35.7-47.0); Hemoglobin 8.9 GM/DL (12.0-16.0); Immature Granulocytes % 0.7 %; Immature Granulocytes Absolute 0.06 #; Lymphocytes # 1.9 10*3/uL (1.4-4.0); Mean Corpuscular HGB Conc 30.9 GM/DL (32-36); Mean Corpuscular Volume 71.5 FL (87-102); Mean Platelet Volume 10.6 FL (9.6-12.0); Neutrophils % 65.6 % (38.7-73.9); Platelet Count 376 T/CUMM (130-400); Red Blood Count 4.03 MC/CUMM (3.8-5.5); Red Cell Distribution Width 17.1 % (9.3-17.3); White Blood Count 8.8 T/CUMM (4-12)
[2020-03-09 05:11] LABS: Calcium 9.5 MG/DL (8.5-10.1); Osmolality,Calculated 276.8 MOS/KG (273-304)
[2020-03-09] MEDS: INSULIN LISPRO 100 UNIT/ML SUBCUT SCH ×2 (11:29→13:19)
[2020-03-09] MEDS: METOPROLOL TARTRATE 25 MG TABLET PO SCH (11:30)
[2020-03-09] MEDS: FERROUS SULFATE 325 MG TABLET PO SCH (11:30)
[2020-03-09] MEDS: ASPIRIN EC 325 MG TABLET PO SCH (11:30)
[2020-03-09] MEDS: levETIRAcetam 500 MG TABLET PO SCH (11:30)
[2020-03-09] MEDS: ISOSORBIDE MONONITRATE 30 MG TABLET PO SCH (11:30)
[2020-03-09] MEDS: ESCITALOPRAM 10 MG TABLET PO SCH (11:31)
[2020-03-09] MEDS: PANTOPRAZOLE 40 MG TABLET PO SCH (11:31)
[2020-03-09] MEDS ORDERED: POLYETHYLENE GLYCOL POWDER 17 GM PACK PO SCH (12:00)
[2020-03-09] MEDS: hydrALAZINE 20 MG/1 ML VIAL IV PRN (13:20)
[2020-03-09 16:09] VITALS: BP 171/78
[2020-03-09] MEDS ORDERED: CEFUROXIME 500 MG TABLET PO SCH (21:00)
[2020-03-10 12:01] LABS: West Nile Virus Ab, IgG, CSF Negative (Negative); West Nile Virus Ab, IgM, CSF Negative (Negative)
== END 2020-03-09 16:10 | DRG 71 ==
LOC: N.ED 15:13 → N.EDINP 17:56 → SUATTDRO 17:56 → N.3E 18:36
PROVIDERS: ADMIT Internal Medicine; ATTEND Internal Medicine Geriatric Medicine

== ENCOUNTER 2020-04-14 10:26 | Inpatient (IN) ==
[2020-04-14] MEDS ORDERED: SODIUM CHLORIDE 0.9% 1,000 ML IV STA ×2 (10:52→13:44)
[2020-04-14 12:57] LABS: Apearance,Urine CLOUDY (Clear); Bacteria,Urine Many /HPF (Few); Bilirubin,Urine Negative (Negative); Blood, Urine Moderate mg/dL (Negative); Glucose,Urine (UA) 150 mg/dL (Negative); Ketones,Urine 5 mg/dL (Negative); Nitrite,Urine Negative (Negative); Protein,Urine 100 MG/DL; RBC,Urine 3662 /HPF (0-4); Urine Color Yellow (Yellow); Urine Specific Gravity 1.018 (1.001-1.035); Urine Urobilinogen < 2.0 EU/DL (0.2-1.0); WBC,Urine 14047 /HPF (0-6)
[2020-04-14] MEDS ORDERED: MEROPENEM 500 MG in SODIUM CHLORIDE 0.9% 100 ML IV ONE (13:02)
[2020-04-14 13:38] LABS: Basophils % 0.1 % (0.0-0.8); Hematocrit 43.5 VOL% (35.7-47.0); Hemoglobin 12.7 GM/DL (12.0-16.0); Immature Granulocytes % 0.7 %; Lymphocytes # 0.9 10*3/uL (1.4-4.0); Lymphocytes % 6.1 % (21.3-54.2); Mean Corpuscular HGB Conc 29.2 GM/DL (32-36); Mean Corpuscular Volume 78.7 FL (87-102); Monocytes % 4.3 % (1.7-12.7); Neutrophils % 88.8 % (38.7-73.9); Platelet Count 327 T/CUMM (130-400); Red Blood Count 5.53 MC/CUMM (3.8-5.5); Red Cell Distribution Width 18.9 % (9.3-17.3)
[2020-04-14 13:47] LABS: Albumin 3.7 G/DL (3.4-5.0); Bilirubin,Total 0.5 MG/DL (0.2-1.0); Calcium 12.6 MG/DL (8.5-10.1); Osmolality,Calculated 328.8 MOS/KG (273-304); Total Protein 8.8 G/DL (6.4-8.3)
[2020-04-14] MEDS ORDERED: GLUCAGON 1 MG VIAL IM PRN (14:53)
[2020-04-14] MEDS ORDERED: ACETAMINOPHEN 325 MG TABLET PO PRN (14:53)
[2020-04-14] MEDS ORDERED: ONDANSETRON 4 MG/2 ML VIAL IV PRN (14:53)
[2020-04-14] MEDS ORDERED: DEXTROSE 50% 25 GM/50 ML VIAL IV PRN ×2 (14:53→15:09)
[2020-04-14] MEDS ORDERED: MAGNESIUM SULF RIDER 4 GM in PREMIX 1 EACH IV PRN (15:09)
[2020-04-14] MEDS ORDERED: MAGNESIUM SULF RIDER 2 GM in PREMIX 1 EACH IV PRN (15:09)
[2020-04-14] MEDS ORDERED: INSULIN REGULAR 100 UNIT/ML IV ONE (15:09)
[2020-04-14] MEDS: SODIUM CHLORIDE 0.9% 1,000 ML IV SCH (16:25)
[2020-04-14] MEDS: INSULIN LISPRO 100 UNIT/ML SUBCUT SCH ×2 (17:01→20:13)
[2020-04-14] MEDS: PIPERACILLIN/TAZOBACTAM 3,375 MG in SODIUM CHLORIDE 0.9% 100 ML IV SCH (17:01)
[2020-04-14 17:06] LABS: Troponin I 0.025 NG/ML (0.00-0.045)
[2020-04-14] MEDS ORDERED: AMPICILLIN/SULBACTAM 1,500 MG in SODIUM CHLORIDE 0.9% 100 ML IV SCH (18:00)
[2020-04-14 19:06] LABS: Troponin I 0.025 NG/ML (0.00-0.045)
[2020-04-14 20:00] LABS: Calcium 10.7 MG/DL (8.5-10.1); Osmolality,Calculated 329.4 MOS/KG (273-304)
[2020-04-14] MEDS: DOCUSATE SODIUM 100 MG CAPSULE PO SCH (20:14)
[2020-04-15] MEDS: PIPERACILLIN/TAZOBACTAM 3,375 MG in SODIUM CHLORIDE 0.9% 100 ML IV SCH ×2 (05:10→16:40)
[2020-04-15] MEDS: SODIUM CHLORIDE 0.9% 1,000 ML IV SCH (05:17)
[2020-04-15 06:42] LABS: Basophils % 0.2 % (0.0-0.8); Hematocrit 37.4 VOL% (35.7-47.0); Immature Granulocytes % 0.4 %; Immature Granulocytes Absolute 0.09 #; Lymphocytes % 4.7 % (21.3-54.2); Mean Corpuscular HGB Conc 32.1 GM/DL (32-36); Mean Corpuscular Volume 74.8 FL (87-102); Monocytes % 7.2 % (1.7-12.7); Neutrophils % 87.5 % (38.7-73.9); Platelet Count 170 T/CUMM (130-400); White Blood Count 20.9 T/CUMM (4-12)
[2020-04-15 07:05] LABS: Band Neutrophils 2 % (0-10); Lymphocytes 9 % (20-55); Segmented Neutrophils 81 % (50-85); Total Cells Counted 100
[2020-04-15 07:06] LABS: Hypochromasia 1+; Platelet Estimate Adequate
[2020-04-15 07:11] LABS: Albumin 2.6 G/DL (3.4-5.0); Bilirubin,Total 0.4 MG/DL (0.2-1.0); Osmolality,Calculated 323.9 MOS/KG (273-304); Risk Ratio 2.2; Thyroid Stimulating Hormone 0.62 uIU/ml (0.358-3.74); Total Protein 6.7 G/DL (6.4-8.3); VLDL CHOLESTEROL 13.4 MG/DL
[2020-04-15] MEDS: INSULIN LISPRO 100 UNIT/ML SUBCUT SCH ×4 (09:06→22:11)
[2020-04-15] MEDS: PANTOPRAZOLE 40 MG TABLET PO SCH (09:09)
[2020-04-15] MEDS: POLYETHYLENE GLYCOL POWDER 17 GM PACK PO SCH (09:09)
[2020-04-15] MEDS: DOCUSATE SODIUM 100 MG CAPSULE PO SCH ×2 (09:09→21:03)
[2020-04-16] MEDS: SODIUM CHLORIDE 0.9% 1,000 ML IV SCH ×2 (02:00→06:00)
[2020-04-16] MEDS: PIPERACILLIN/TAZOBACTAM 3,375 MG in SODIUM CHLORIDE 0.9% 100 ML IV SCH ×2 (05:57→17:27)
[2020-04-16 06:11] LABS: Basophils % 0.2 % (0.0-0.8); Eosinophils % 0.1 % (0.00-10.9); Hematocrit 31.1 VOL% (35.7-47.0); Hemoglobin 9.6 GM/DL (12.0-16.0); Immature Granulocytes % 0.3 %; Immature Granulocytes Absolute 0.05 #; Lymphocytes # 1.1 10*3/uL (1.4-4.0); Lymphocytes % 7.6 % (21.3-54.2); Mean Corpuscular HGB Conc 30.9 GM/DL (32-36); Mean Corpuscular Volume 75.7 FL (87-102); Monocytes % 8.5 % (1.7-12.7); Neutrophils % 83.3 % (38.7-73.9); Platelet Count 183 T/CUMM (130-400); Red Blood Count 4.11 MC/CUMM (3.8-5.5); Red Cell Distribution Width 18.6 % (9.3-17.3); White Blood Count 14.8 T/CUMM (4-12)
[2020-04-16 06:30] LABS: Band Neutrophils 3 % (0-10); Hypochromasia 1+; Lymphocytes 11 % (20-55); Ovalocytes Slight; Platelet Estimate Adequate; Segmented Neutrophils 81 % (50-85); Total Cells Counted 100
[2020-04-16 06:47] LABS: Bilirubin,Total 1.4 MG/DL (0.2-1.0); Calcium 10.8 MG/DL (8.5-10.1); Osmolality,Calculated 337.9 MOS/KG (273-304); Total Protein 5.7 G/DL (6.4-8.3)
[2020-04-16] MEDS ORDERED: DEXTROSE 5% NACL 0.45% 1,000 ML IV SCH (07:00)
[2020-04-16] MEDS: POLYETHYLENE GLYCOL POWDER 17 GM PACK PO SCH (08:54)
[2020-04-16] MEDS: DOCUSATE SODIUM 100 MG CAPSULE PO SCH ×2 (08:54→21:08)
[2020-04-16] MEDS: PANTOPRAZOLE 40 MG TABLET PO SCH (08:54)
[2020-04-16] MEDS: INSULIN LISPRO 100 UNIT/ML SUBCUT SCH ×4 (08:54→21:09)
[2020-04-16] MEDS: DEXTROSE 5% 1,000 ML IV SCH ×2 (12:26→12:36)
[2020-04-16] MEDS: INSULIN GLARGINE 100 UNIT/ML SUBCUT SCH (21:08)
[2020-04-17] MEDS: DEXTROSE 5% 1,000 ML IV SCH ×2 (04:19→21:00)
[2020-04-17] MEDS: PIPERACILLIN/TAZOBACTAM 3,375 MG in SODIUM CHLORIDE 0.9% 100 ML IV SCH (04:21)
[2020-04-17 06:21] LABS: Basophils % 0.2 % (0.0-0.8); Eosinophils # 0.1 10*3/uL (0.0-0.87); Eosinophils % 0.7 % (0.00-10.9); Hematocrit 32.8 VOL% (35.7-47.0); Hemoglobin 10.1 GM/DL (12.0-16.0); Immature Granulocytes % 0.6 %; Immature Granulocytes Absolute 0.07 #; Lymphocytes # 1.2 10*3/uL (1.4-4.0); Mean Corpuscular HGB Conc 30.8 GM/DL (32-36); Mean Corpuscular Volume 76.5 FL (87-102); NRBC # 0.02 10*3/uL; Neutrophils % 79.5 % (38.7-73.9); Platelet Count 124 T/CUMM (130-400); Red Blood Count 4.29 MC/CUMM (3.8-5.5)
[2020-04-17 06:54] LABS: Albumin 2.3 G/DL (3.4-5.0); Band Neutrophils 3 % (0-10); Bilirubin,Total 0.5 MG/DL (0.2-1.0); Calcium 11.3 MG/DL (8.5-10.1); Eosinophils 2 % (0-10); Lymphocytes 6 % (20-55); Segmented Neutrophils 84 % (50-85); Total Cells Counted 100; Total Protein 6.3 G/DL (6.4-8.3)
[2020-04-17 06:55] LABS: Hypochromasia 1+; Ovalocytes Slight; Platelet Estimate Normal
[2020-04-17 06:56] LABS: Macrocytosis Slight
[2020-04-17] MEDS: INSULIN LISPRO 100 UNIT/ML SUBCUT SCH ×4 (08:36→21:18)
[2020-04-17] MEDS: POTASSIUM CHLORIDE RIDER 10 MEQ in PREMIX 1 EACH IV PRN ×2 (08:36→09:57)
[2020-04-17] MEDS: POLYETHYLENE GLYCOL POWDER 17 GM PACK PO SCH (08:37)
[2020-04-17] MEDS: PANTOPRAZOLE 40 MG TABLET PO SCH (08:37)
[2020-04-17] MEDS: DOCUSATE SODIUM 100 MG CAPSULE PO SCH ×2 (08:37→21:00)
[2020-04-17] MEDS: cefTRIAXone 1,000 MG in SYRINGE 1 EACH IV SCH (09:56)
[2020-04-17] MEDS ORDERED: TUBERCULIN SKIN TEST 0.1 ML SYRINGE INTRADERM ONE (11:18)
[2020-04-17] MEDS: INSULIN GLARGINE 100 UNIT/ML SUBCUT SCH (21:19)
[2020-04-18] MEDS: DEXTROSE 5% 1,000 ML IV SCH ×3 (05:39→23:04)
[2020-04-18 06:10] LABS: Basophils % 0.2 % (0.0-0.8); Eosinophils # 0.1 10*3/uL (0.0-0.87); Eosinophils % 1.2 % (0.00-10.9); Hematocrit 30.3 VOL% (35.7-47.0); Hemoglobin 9.3 GM/DL (12.0-16.0); Immature Granulocytes % 0.6 %; Immature Granulocytes Absolute 0.06 #; Lymphocytes # 1.6 10*3/uL (1.4-4.0); Lymphocytes % 15.9 % (21.3-54.2); Mean Corpuscular HGB Conc 30.7 GM/DL (32-36); Mean Corpuscular Volume 76.5 FL (87-102); Monocytes % 12.5 % (1.7-12.7); NRBC # 0.09 10*3/uL; Neutrophils % 69.6 % (38.7-73.9); Platelet Count 155 T/CUMM (130-400); Red Blood Count 3.96 MC/CUMM (3.8-5.5); Red Cell Distribution Width 18.6 % (9.3-17.3); White Blood Count 9.8 T/CUMM (4-12)
[2020-04-18 06:22] LABS: Calcium 10.5 MG/DL (8.5-10.1); Osmolality,Calculated 314.1 MOS/KG (273-304)
[2020-04-18 06:40] LABS: Band Neutrophils 1 % (0-10); Eosinophils 1 % (0-10); Hypochromasia 1+; Lymphocytes 18 % (20-55); Nucleated Red Blood Cells 1 (0-5); Ovalocytes Slight; Platelet Estimate Adequate; Segmented Neutrophils 70 % (50-85); Total Cells Counted 100
[2020-04-18 06:41] LABS: Macrocytosis Slight
[2020-04-18] MEDS: POTASSIUM CHLORIDE RIDER 10 MEQ in PREMIX 1 EACH IV PRN ×2 (07:59→09:05)
[2020-04-18] MEDS: cefTRIAXone 1,000 MG in SYRINGE 1 EACH IV SCH ×2 (08:02→09:21)
[2020-04-18] MEDS: POLYETHYLENE GLYCOL POWDER 17 GM PACK PO SCH (09:20)
[2020-04-18] MEDS: DOCUSATE SODIUM 100 MG CAPSULE PO SCH ×2 (09:20→21:41)
[2020-04-18] MEDS: PANTOPRAZOLE 40 MG TABLET PO SCH (09:21)
[2020-04-18] MEDS: INSULIN LISPRO 100 UNIT/ML SUBCUT SCH ×3 (09:27→17:24)
[2020-04-18] MEDS: INSULIN GLARGINE 100 UNIT/ML SUBCUT SCH (21:41)
[2020-04-19] MEDS: INSULIN LISPRO 100 UNIT/ML SUBCUT SCH ×5 (00:05→22:31)
[2020-04-19 05:42] LABS: Basophils % 0.2 % (0.0-0.8); Eosinophils # 0.1 10*3/uL (0.0-0.87); Hematocrit 26.2 VOL% (35.7-47.0); Hemoglobin 8.3 GM/DL (12.0-16.0); Immature Granulocytes % 3.3 %; Lymphocytes # 2.1 10*3/uL (1.4-4.0); Lymphocytes % 23.1 % (21.3-54.2); Mean Corpuscular HGB Conc 31.7 GM/DL (32-36); Mean Corpuscular Volume 74.6 FL (87-102); Monocytes % 18.3 % (1.7-12.7); NRBC # 0.09 10*3/uL; Neutrophils % 54.1 % (38.7-73.9); Red Blood Count 3.51 MC/CUMM (3.8-5.5)
[2020-04-19 05:58] LABS: Platelet Count 109 T/CUMM (130-400)
[2020-04-19 06:11] LABS: Eosinophils 4 % (0-10); Lymphocytes 21 % (20-55); Platelet Estimate Decreased; Segmented Neutrophils 58 % (50-85); Total Cells Counted 100
[2020-04-19 06:12] LABS: Hypochromasia 1+; Microcytosis Slight
[2020-04-19 06:16] LABS: Calcium 9.8 MG/DL (8.5-10.1); Osmolality,Calculated 293.1 MOS/KG (273-304)
[2020-04-19] MEDS: cefTRIAXone 1,000 MG in SYRINGE 1 EACH IV SCH (08:37)
[2020-04-19] MEDS: DOCUSATE SODIUM 100 MG CAPSULE PO SCH ×2 (08:42→21:25)
[2020-04-19] MEDS: POLYETHYLENE GLYCOL POWDER 17 GM PACK PO SCH (08:42)
[2020-04-19] MEDS: PANTOPRAZOLE 40 MG TABLET PO SCH (08:43)
[2020-04-19] MEDS ORDERED: FOSPHENYTOIN 1,000 MG.PE in SODIUM CHLORIDE 0.9% 250 ML IV ONE ×2 (09:12→13:00)
[2020-04-19] MEDS: DEXTROSE 5% 1,000 ML IV SCH (12:26)
[2020-04-20] MEDS: DEXTROSE 5% 1,000 ML IV SCH (01:38)
[2020-04-20 08:32] LABS: Basophils % 0.4 % (0.0-0.8); Eosinophils # 0.1 10*3/uL (0.0-0.87); Eosinophils % 0.6 % (0.00-10.9); Hematocrit 24.2 VOL% (35.7-47.0); Hemoglobin 7.7 GM/DL (12.0-16.0); Immature Granulocytes % 2.1 %; Immature Granulocytes Absolute 0.16 #; Lymphocytes # 1.5 10*3/uL (1.4-4.0); Lymphocytes % 19.9 % (21.3-54.2); Mean Corpuscular HGB Conc 31.8 GM/DL (32-36); Mean Corpuscular Volume 73.3 FL (87-102); Monocytes % 19.5 % (1.7-12.7); NRBC # 0.02 10*3/uL; Neutrophils % 57.5 % (38.7-73.9); Platelet Count 125 T/CUMM (130-400); Red Cell Distribution Width 17.4 % (9.3-17.3); White Blood Count 7.8 T/CUMM (4-12)
[2020-04-20 08:48] LABS: Osmolality,Calculated 289.5 MOS/KG (273-304)
[2020-04-20] MEDS ORDERED: [UNRECOGNIZED DRUG - OTHER] IV SCH (09:00)
[2020-04-20] MEDS ORDERED: SODIUM CHLORIDE IV SCH (09:00)
[2020-04-20] MEDS ORDERED: FOSPHENYTOIN 100 MG.PE/2 ML VIAL IV SCH (09:00)
[2020-04-20] MEDS ORDERED: FOSPHENYTOIN IV SCH (09:00)
[2020-04-20 09:04] LABS: Band Neutrophils 6 % (0-10); Eosinophils 1 % (0-10); Hypochromasia 1+; Lymphocytes 19 % (20-55); Microcytosis 1+; Myelocytes 2 %; Segmented Neutrophils 54 % (50-85); Total Cells Counted 100
[2020-04-20 09:05] LABS: Atypical Lymphocytes Few; Platelet Estimate Adequate; Polychromasia Slight
[2020-04-20] MEDS: cefTRIAXone 1,000 MG in SYRINGE 1 EACH IV SCH (09:55)
[2020-04-20] MEDS: INSULIN LISPRO 100 UNIT/ML SUBCUT SCH ×2 (09:55→12:34)
[2020-04-20] MEDS: DOCUSATE SODIUM 100 MG CAPSULE PO SCH (10:58)
[2020-04-20 16:06] VITALS: BP 144/60
== END 2020-04-20 16:52 | disposition hospice, inpatient (51) | DRG 177 ==
LOC: EDBD → EDUNIT# → N.ED 10:26 → N.EDINP 14:07 → SUATTDRO 14:07 → N.EDINP 15:25 → N.TELEN 15:26 → N.4E 04-19 15:19
PROVIDERS: ADMIT Internal Medicine; ATTEND Hospitalist